=== PATIENT | male | born 1995 | race Caucasian/White ===

== ENCOUNTER 2018-09-20 09:55 | Emergency (ER) | payer SELFPAY ==
[~2018-09-20] VITALS: Ht 170.2 cm; Wt 68.0 kg
[2018-09-20] MEDS ORDERED: IBUPROFEN 600MG TABLET PO ONE (11:45)
[2018-09-20] MEDS ORDERED: ACETAMINOPHEN 500MG TABLET PO ONE (11:45)
[2018-09-20 13:00] VITALS: BP 131/70
== END 2018-09-20 13:01 | disposition home or self-care (01) ==
LOC: ER 11:52
DX: S09.8XXA Other specified injuries of head, initial encounter (principal); J45.909 Unspecified asthma, uncomplicated; W22.8XXA Striking against or struck by other objects, initial encounter; Y93.89 Activity, other specified; Y92.9 Unspecified place or not applicable
CPT/HCPCS: 99283